=== PATIENT | female | born 1945 | race Caucasian/White ===

== ENCOUNTER 2017-03-11 17:03 | Emergency (ER) | payer MEDICARE, OTHER ==
[~2017-03-11] VITALS: Ht 165.1 cm; Wt 77.1 kg
[~2017-03-11 17:03] MED LIST: CHOL100043 PO; DIVA500T7 PO; LEVO50TA8 PO; LORA10TA7 PO; QUET100T PO; SULF15DR6 EACHEYE
[2017-03-11] MEDS ORDERED: PANT40TA4 PO (17:16)
[2017-03-11] MEDS ORDERED: LATA2.5D7 LEFTEYE (17:16)
[2017-03-11] MEDS ORDERED: MULT-70 PO (17:16)
[2017-03-11] MEDS ORDERED: QUET200T PO (17:16)
[2017-03-11] MEDS ORDERED: SULFACETAMIDE SOD 10% OPHT DR 15 ML BOTTLE OP ONE (17:30)
--- NOTE | 2017-03-11 17:31 | NUR ---
CALLED [facility]. ETA 60 MINUTES
[2017-03-11] MEDS ORDERED: SULFACETAMIDE SOD 10% OPHT DR 15 ML BOTTLE ONE (17:41)
--- NOTE | 2017-03-11 17:51 | NUR ---
MEDICATION ADMINISTERED, PT POSITIONED FOR COMFORT, AWAITING FOR PRIVATE AMBULANCE.
--- NOTE | 2017-03-11 18:51 | NUR ---
SBAR REPORT TO EILEEN SNOWDEN, ALSO ACI/RX X1 GIVEN. PT TOOK ALL BELONGINGS.
[2017-03-11 19:22] VITALS: BP 148/88
== END 2017-03-11 19:24 | disposition home or self-care (01) ==
LOC: ER 17:05
DX: H10.9 Unspecified conjunctivitis (principal); K21.9 Gastro-esophageal reflux disease without esophagitis; J45.909 Unspecified asthma, uncomplicated; F31.9 Bipolar disorder, unspecified; F20.9 Schizophrenia, unspecified; E03.9 Hypothyroidism, unspecified; H40.9 Unspecified glaucoma
CPT/HCPCS: A4663